=== PATIENT | male | born 1985 | race Asian ===

== ENCOUNTER 2025-04-03 11:59 | Inpatient (IN) | payer BC ==
[2025-04-03 12:18] LABS: ABSOLUTE IMMATURE GRANULOCYTES 0.04 x10^3/uL (0.0-0.031); BASOPHILS # 0.02 x10^3/uL (0.01-0.08); EOSINOPHIL % 0.1 % (0.8-7.0); EOSINOPHILS # 0.01 x10^3/uL (0.04-0.54); MCHC 34.2 g/dl (32.3-36.5); MEAN CELL VOLUME 89.3 fl (79.0-92.2); MEAN PLT VOLUME 9.7 fl (9.4-12.4); MONOCYTE # 0.74 x10^3/uL (0.30-0.82); MONOCYTE % 5.7 % (5.3-12.2); RDW 12.7 % (12.0-15.6)
[2025-04-03 12:20] LABS: BG HCT 48.0 % (35.4-49); VENOUS BASE EXCESS 0.4 mmol/L (-2-2); VENOUS O2 SATURATION 43.2 % (70-80); VENOUS PCO2 48.6 mmHg (38-52); VENOUS PH 7.357 (7.310-7.410)
[2025-04-03 12:25] LABS: INR 1.07 (0.83-1.09); PROTHROMBIN TIME (PATIENT) 11.8 SEC (9.7-13.0)
[2025-04-03 12:27] LABS: ACTIVATED PTT 27.5 SECONDS (25.2-36.5)
[2025-04-03] MEDS ORDERED: METOCLOPRAMIDE HCL INJECTION 10 MG/2 ML VIAL ONE (12:28)
[2025-04-03] MEDS ORDERED: ACETAMINOPHEN INJECTION 100 ML ONE (12:28)
[2025-04-03] MEDS ORDERED: levETIRAcetam 500 MG/5 ML INJECTION VIAL IVPB ONE (12:42)
[2025-04-03 12:45] LABS: GLUCOSE,RANDOM 116 mg/dL (74-106)
[2025-04-03 12:46] LABS: CO2 27 mmol/L (21-32)
[2025-04-03 12:49] LABS: CREATININE 1.1 mg/dL (0.55-1.3); SGOT/AST 28 U/L (15-37); SGPT/ALT 28 U/L (13-61)
[2025-04-03 12:50] LABS: LDL CHOLESTEROL (ONLY SJRH) 172 mg/dL (5-100); TOT PROT 7.2 g/dl (6.4-8.2)
[2025-04-03 12:51] LABS: ALK PHOS 80 U/L (45-117)
[2025-04-03] MEDS: METOCLOPRAMIDE HCL INJECTION 10 MG/2 ML VIAL IVPB ONE (13:09)
[2025-04-03] MEDS: ACETAMINOPHEN 1000 MG/100 ML BAG IVPB ONE (13:09)
[2025-04-03] MEDS: levETIRAcetam 500 MG/5 ML INJECTION VIAL IVPB ONE (13:09)
[2025-04-03] MEDS: SODIUM CHLORIDE 1,000 ML IV SCH (13:09)
[2025-04-03 15:33] LABS: URINE APPEARANCE CLEAR; URINE BILIRUBIN NEGATIVE (NEGATIVE); URINE COLOR YELLOW; URINE GLUCOSE (UA) NEGATIVE (NEGATIVE); URINE KETONE NEGATIVE (NEGATIVE); URINE LEUK ESTERASE NEGATIVE (NEGATIVE); URINE NITRITE NEGATIVE (NEGATIVE); URINE PROTEIN NEGATIVE (NEGATIVE); URINE UROBILINOGEN 0.2 mg/dL (0.2-1.0)
[2025-04-03 16:06] LABS: COCAINE, UR NEGATIVE (NEGATIVE); METHADONE, UR NEGATIVE (NEGATIVE); OPIATES, URI NEGATIVE (NEGATIVE); PHENCYCLIDINE,URINE NEGATIVE (NEGATIVE); URINE AMPHETAMINES NEGATIVE (NEGATIVE); URINE BARBITURATES NEGATIVE (NEGATIVE); URINE BENZODIAZEPINES NEGATIVE (NEGATIVE)
[2025-04-03] MEDS: KETOROLAC TROMETHAMINE 15 MG/ML VIAL IVPUSH ONE (16:15)
[2025-04-03] MEDS ORDERED: KETOROLAC TROMETHAMINE 15 MG/ML VIAL ONE (16:16)
[2025-04-03] MEDS ORDERED: morphine CARPU-JECT 2 MG/1 ML DISP.SYRIN IVPUSH PRN (16:29)
[2025-04-03] MEDS ORDERED: MAGNESIUM OXIDE 400 MG TABLET (FP) ONE (17:02)
[2025-04-03] MEDS: MAGNESIUM OXIDE 400 MG TABLET (FP) PO ONE (17:21)
[2025-04-03 17:29] VITALS: RESP 18
[2025-04-03] MEDS ORDERED: MORPHINE SULFATE 2 MG/ML SYRINGE ONE (17:31)
[2025-04-03] MEDS: morphine CARPU-JECT 2 MG/1 ML DISP.SYRIN IVPUSH PRN (17:35)
[2025-04-03 18:18] VITALS: BMI 22.4
[2025-04-03] MEDS: ACETAMINOPHEN 500 MG TABLET (FP) PO PRN (22:53)
[2025-04-03] MEDS: levETIRAcetam 500 MG/5 ML ORAL SOLUTION (UNIT-DOSE CUPS) PO SCH (22:53)
[2025-04-04 12:18] LABS: GLUCOSE,RANDOM 93.0 mg/dL (74-106)
[2025-04-04 12:19] LABS: CO2 31.0 mmol/L (21-32)
[2025-04-04 12:22] LABS: CREATININE 1.0 mg/dL (0.55-1.3); SGOT/AST 31.0 U/L (15-37); SGPT/ALT 25.0 U/L (13-61)
[2025-04-04 12:23] LABS: TOT PROT 7.0 g/dl (6.4-8.2)
[2025-04-04 12:24] LABS: ALK PHOS 76.0 U/L (45-117)
[2025-04-04 12:33] LABS: ABSOLUTE IMMATURE GRANULOCYTES 0.03 x10^3/uL (0.0-0.031); BASOPHILS # 0.02 x10^3/uL (0.01-0.08); EOSINOPHIL % 1.0 % (0.8-7.0); EOSINOPHILS # 0.07 x10^3/uL (0.04-0.54); MCHC 33.3 g/dl (32.3-36.5); MEAN CELL VOLUME 90.7 fl (79.0-92.2); MEAN PLT VOLUME 10.3 fl (9.4-12.4); MONOCYTE # 0.64 x10^3/uL (0.30-0.82); MONOCYTE % 9.1 % (5.3-12.2); RDW 12.9 % (12.0-15.6)
[2025-04-04] MEDS: SODIUM CHLORIDE 1,000 ML IV SCH (20:35)
[2025-04-05 07:05] LABS: MCHC 32.4 g/dl (32.3-36.5); MEAN CELL VOLUME 92.1 fl (79.0-92.2); MEAN PLT VOLUME 10.1 fl (9.4-12.4); RDW 13.0 % (12.0-15.6)
[2025-04-05 09:36] VITALS: BP 124/79; PULSE 103; TEMP 98.8
[2025-04-05] MEDS: ENOXAPARIN NA (PORCINE) 40 MG/0.4 ML DISP.SYRIN SQ SCH (09:36)
== END 2025-04-05 12:36 | disposition home or self-care (01) | DRG 101 ==
LOC: JER 11:59 → JERBED 14:14 → J4W 19:07
PROVIDERS: ADMIT Internal Medicine; ATTEND Internal Medicine
DX: G40.909 Epilepsy, unspecified, not intractable, without status epilepticus (principal); S42.202A Unspecified fracture of upper end of left humerus, initial encounter for closed fracture; M62.82 Rhabdomyolysis; W19.XXXA Unspecified fall, initial encounter; Y93.89 Activity, other specified; Y92.89 Other specified places as the place of occurrence of the external cause; Y99.8 Other external cause status
CPT/HCPCS: 36415; 70450-TC; 70486-TC; 70496-TC; 70498-TC; 70553-TC; 72125-TC; 72128-TC; 72131-TC; 72141-TC; 73030-TC-LT-FY; 73060-TC-LT-FY; 73070-TC-LT-FY; 73200-TC-RT; 80053; 80061; 80307; 81003; 82550; 82553; 82803; 82962; 83036; 83605; 83735; 84100; 84484; 85025; 85027; 85610; 85730; 87086; 93005; 93010; 95816; 99291